=== PATIENT | male | born 1955 | race Caucasian/White ===

== ENCOUNTER 2020-01-10 08:10 | Day surgery (SDC) | payer OTHER ==
[2020-01-07 09:14] VITALS: BMI 24.3
[2020-01-10] MEDS ORDERED: MIDAZOLAM HCL 2 MG/2 ML SINGLE DOSE VIAL ONE (09:49)
[2020-01-10] MEDS ORDERED: ROPIVACAINE HCL 0.5% 30ML VIAL ONE (09:49)
[2020-01-10] MEDS ORDERED: ONDANSETRON 4 MG/2 ML VIAL ONE (10:49)
[2020-01-10] MEDS ORDERED: ceFAZolin SODIUM 1 GM VIAL ONE (11:12)
[2020-01-10 13:01] VITALS: TEMP 97.5
[2020-01-10 13:32] VITALS: BP 166/90; PULSE 70
[2020-01-10] MEDS ORDERED: ACETAMINOPHEN 325 MG TABLET (FP) PO PRN (13:40)
[2020-01-10] MEDS ORDERED: oxyCODONE HCL 5 MG TABLET PO PRN ×2 (13:40)
[2020-01-10] MEDS ORDERED: ONDANSETRON 4 MG/2 ML VIAL IVPUSH PRN (13:40)
[2020-01-10] MEDS ORDERED: LACTATED RINGERS SOLUTION 1,000 ML IV SCH (13:45)
== END 2020-01-10 13:05 | disposition home or self-care (01) ==
LOC: FASU 08:10
PROVIDERS: ATTEND Orthopaedic Surgery
PROC: 0RNK4ZZ Release Left Shoulder Joint, Percutaneous Endoscopic Approach (ICD-10-PCS; 2020-01-10)
PROC: 0PBB4ZZ Excision of Left Clavicle, Percutaneous Endoscopic Approach (ICD-10-PCS; 2020-01-10)
PROC: 0RBK4ZZ Excision of Left Shoulder Joint, Percutaneous Endoscopic Approach (ICD-10-PCS; 2020-01-10)
PROC: 0LQ24ZZ Repair Left Shoulder Tendon, Percutaneous Endoscopic Approach (ICD-10-PCS; principal; 2020-01-10 11:16)
DX: M75.122 Complete rotator cuff tear or rupture of left shoulder, not specified as traumatic (principal); M75.42 Impingement syndrome of left shoulder; M75.02 Adhesive capsulitis of left shoulder; M19.012 Primary osteoarthritis, left shoulder; S43.432A Superior glenoid labrum lesion of left shoulder, initial encounter; X58.XXXA Exposure to other specified factors, initial encounter; Y93.9 Activity, unspecified; Y92.9 Unspecified place or not applicable; M65.812 Other synovitis and tenosynovitis, left shoulder
CPT/HCPCS: 88304-TC